=== PATIENT | male | born 1985 | race Caucasian/White ===

== ENCOUNTER 2016-05-23 04:32 | Emergency (ER) | payer BC ==
[~2016-05-23] VITALS: Ht 193 cm; Wt 81.6 kg
[2016-05-23] MEDS ORDERED: ATRIPLA TABLET1 EAC1 ORAL (04:58)
[2016-05-23] MEDS ORDERED: LORazepam Inj 2mg/ml 1ml IM ONE ×2 (05:00→06:00)
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
[2016-05-23 05:20] VITALS: BP 137/96
[2016-05-23 06:15] VITALS: BP 135/90
== END 2016-05-23 06:15 | disposition home or self-care (01) ==
LOC: EMR 05:10
DX: F23 Brief psychotic disorder (principal); F15.10 Other stimulant abuse, uncomplicated
CPT/HCPCS: 80300; 96372

== ENCOUNTER 2016-05-23 08:28 | Emergency (ER) | payer BC ==
[~2016-05-23] VITALS: Ht 182.9 cm; Wt 68.0 kg
[~2016-05-23 08:28] MED LIST: ATRIPLA TABLET1 EAC1 ORAL
[2016-05-23 08:30] VITALS: BP 120/82
[2016-05-23] MEDS ORDERED: Bacitracin Oint UD TOPIC ONE (08:30)
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
[2016-05-23] MEDS ORDERED: LORazepam Inj 2mg/ml 1ml ONE (08:56)
[2016-05-23] MEDS ORDERED: LORazepam Inj 2mg/ml 1ml IV ONE (09:00)
[2016-05-23 09:04] LABS: BASOPHILS % (AUTO) 0.4 % (0.0-2.0); EOSINOPHILS % (AUTO) 0.2 % (0.0-3.0); LYMPHOCYTES % (AUTO) 13.9 % (20.0-45.0); MEAN CORPUSCULAR HEMOGLOBIN 31.3 PG (27.0-31.0); MEAN CORPUSCULAR HGB CONC 33.8 G/DL (32.0-36.0); MEAN CORPUSCULAR VOLUME 93 FL (80-99); MEAN PLATELET VOLUME 7.6 FL (6.5-10.1); MONOCYTES % (AUTO) 7.7 % (1.0-10.0); NEUTROPHILS % (AUTO) 77.8 % (45.0-75.0); PLATELET COUNT 209 K/UL (150-450); RED BLOOD COUNT 4.53 M/UL (4.70-6.10)
[2016-05-23 09:09] LABS: ACETAMINOPHEN < 10 ug/mL (10-30); ALANINE AMINOTRANSFERASE 25 U/L (3-41); ALBUMIN/GLOBULIN RATIO 1.7 (1.0-2.7); ALCOHOL < 10 mg/dL; ANION GAP 17 (5-15); ASPARTATE AMINO TRANSFERASE 57 U/L (5-40); CALCIUM 8.9 mg/dL (8.6-10.2); CARBON DIOXIDE 25 mEQ/L (20-30); CHLORIDE 98 mEQ/L (98-107); CREATININE 0.9 mg/dL (0.7-1.2); GLOMERULAR FILTRATION RATE > 60 mL/min (>60); HEMOLYSIS 6; POTASSIUM 3.7 mEQ/L (3.4-4.9); SODIUM 140 mEQ/L (135-145); TOTAL PROTEIN 6.7 g/dL (6.6-8.7)
[2016-05-23 09:18] LABS: APPEARANCE,URINE CLEAR; KETONES,URINE 1+ (NEGATIVE); LEUKOCYTE ESTERASE ,URINE NEGATIVE (NEGATIVE); NITRITE,URINE NEGATIVE (NEGATIVE); PH,URINE 6 (4.5-8.0); PROTEIN,URINE NEGATIVE (NEGATIVE); UROBILINOGEN,URINE NORMAL MG/DL (0.0-1.0)
[2016-05-23 09:38] LABS: BACTERIA,URINE FEW /HPF; RBC,URINE 0-2 /HPF (0 - 0); SQUAMOUS EPITHELIAL CELL,UR OCCASIONAL /LPF (NONE/OCC); WBC,URINE 0-2 /HPF (0 - 0)
[2016-05-23 10:30] VITALS: BP 120/85
[2016-05-23 11:51] VITALS: BP 127/76
[2016-05-23 13:14] VITALS: BP 118/80
[2016-05-23 14:52] VITALS: BP 103/64
--- NOTE | 2016-05-23 15:54 | Diagnostic Imaging Report ---
Indications: Altered level of consciousness Technique: Continuous helical CT imaging of the brain was performed with automatic exposure control on a Siemens sensation [address] scanner. Axial and coronal images were reconstructed at 5 mm slice thickness and interval. CTDI volume(s): 70 mGy Total DLP: 1383 mGy-cm Findings: Comparison: None. Intracranial anatomy is unremarkable. No evidence of mass or hemorrhage, other attenuation abnormality, mass effect, midline shift, hydrocephalus or increased intracranial pressure. Bone window images are unremarkable. Visualized paranasal sinuses and mastoid air cells are clear. IMPRESSION: Negative noncontrast CT scan of the brain . The CT scanner at [facility] is accredited by the [employer] and the scans are performed using protocols designed to limit radiation exposure to as low as reasonably achievable to attain images of sufficient resolution adequate for diagnostic evaluation.
[2016-05-23 16:28] VITALS: BP 103/64
--- NOTE | 2016-05-26 03:11 | Cardiology Report ---
APPROVED REPORT EKG Measurement Heart [id number] Sinus rhythm with marked sinus arrhythmia Prolonged QT Abnormal ECG
== END 2016-05-23 16:31 | disposition home or self-care (01) ==
LOC: EDBD 08:28 → EMR 08:42
DX: F15.10 Other stimulant abuse, uncomplicated (principal); F19.10 Other psychoactive substance abuse, uncomplicated; M62.82 Rhabdomyolysis; R40.1 Stupor; R40.4 Transient alteration of awareness; F17.200 Nicotine dependence, unspecified, uncomplicated; Z78.1 Physical restraint status; S80.212A Abrasion, left knee, initial encounter; S80.211A Abrasion, right knee, initial encounter; X58.XXXA Exposure to other specified factors, initial encounter; Y92.9 Unspecified place or not applicable; Y99.8 Other external cause status
CPT/HCPCS: 36415; 70450; 80053; 80300; 81003; 82550; 85025; 93005; 96360; 96361; 96374; 99291; G0480; 80329